=== PATIENT | female | born 1990 | race African-American/Black ===

== ENCOUNTER 2024-04-12 23:42 | Emergency (ER) | payer OTHER, MEDICAID ==
[~2024-04-12] VITALS: Ht 175.3 cm; Wt 73.0 kg
[2024-04-13] MEDS: LORAZEPAM 2MG/ML INJ IM ONE (00:08)
[2024-04-13] MEDS: HALOPERIDOL LACTATE 5MG/ML VIAL IM ONE (00:09)
[2024-04-13] MEDS: DIPHENHYDRAMINE 50MG/ML VIAL IM ONE (00:09)
[2024-04-13 00:53] LABS: BASOPHILS % 0.4 % (0.0-2.0); EOSINOPHILS % 0.5 % (0.0-5.0); HEMATOCRIT. 34.2 % (36.0-48.0); HEMOGLOBIN. 11.2 g/dL (12.0-16.0); LYMPHOCYTES % 25.2 % (20.0-50.0); MEAN CORPUSCULAR HEMOGLOBIN 31.4 pg (28.0-32.0); MEAN CORPUSCULAR HGB CONC 32.8 g/dL (31.0-37.0); MEAN CORPUSCULAR VOLUME 95.9 fL (81.0-99.0); MONOCYTES % 8.9 % (2.0-8.0); PLATELET 225 x1000/uL (130-400); RED BLOOD CELL COUNT 3.56 mill/uL (4.2-5.4); RED CELL DISTRIBUTION WIDTH 12.7 % (11.6-14.6); WHITE BLOOD COUNT 4.9 x1000/uL (4.5-11.0)
[2024-04-13 00:56] LABS: CHLORIDE 110 mEq/L (98-107); POTASSIUM 3.7 mEq/L (3.5-5.1); SODIUM 146 mEq/L (136-145)
[2024-04-13 00:57] LABS: CARBON DIOXIDE 22 mEq/L (21-32); CLARITY URINE CLEAR (CLEAR); COLOR URINE YELLOW (YELLOW); GLUCOSE URINE NEGATIVE (NEGATIVE); KETONES URINE NEGATIVE (NEGATIVE); LEUKOCYTE ESTERASE URINE TRACE (NEGATIVE); NITRITE URINE NEGATIVE (NEGATIVE); OCCULT BLOOD URINE NEGATIVE (NEGATIVE); PH URINE 6.5 (4.5-8.0); PROTEIN URINE NEGATIVE (NEGATIVE); SPECIFIC GRAVITY URINE 1.003 (1.005-1.030); UROBILINOGEN URINE 0.2 E.U./dL (0.2-1.0)
[2024-04-13 00:58] LABS: CALCIUM 9.5 mg/dL (8.7-10.4)
[2024-04-13 01:02] LABS: CREATININE 0.6 mg/dL (0.6-1.0); GLUCOSE 89 mg/dL (70-105); UREA NITROGEN BLOOD 5 mg/dL (9-23)
[2024-04-13 01:04] LABS: ACETAMINOPHEN < 2 ug/mL (10-30)
[2024-04-13 01:09] LABS: *AMPHETAMINES SCREEN URINE NEGATIVE (NEGATIVE); *BARBITURATES SCREEN URINE NEGATIVE (NEGATIVE); *BENZODIAZEPINES SCREEN URINE NEGATIVE (NEGATIVE); *COCAINE SCREEN URINE NEGATIVE (NEGATIVE); CANNABINOID URINE SCREEN NEGATIVE (NEGATIVE); ECSTASY MDMA SCREEN URINE NEGATIVE (NEGATIVE); METHADONE URINE SCREEN NEGATIVE (NEGATIVE); OPIATES URINE SCREEN NEGATIVE (NEGATIVE); PHENCYCLIDINE URINE SCREEN NEGATIVE (NEGATIVE)
[2024-04-13 01:12] LABS: ETHANOL BLOOD 310 mg/dL (<10)
[2024-04-13 01:16] LABS: HCG SCREEN NEGATIVE
[2024-04-13 02:00] VITALS: O2SAT 98
[2024-04-13 05:35] LABS: SQUAMOUS EPITHELIAL CELL URINE 1+ /lpf (RARE/1+)
[2024-04-13 05:37] LABS: RBC URINE 0-2 /hpf (0-2)
[2024-04-13 05:39] LABS: BACTERIA URINE TRACE
[2024-04-15] MEDS: ACETAMINOPHEN 325MG TABLET PO ONE (15:47)
[2024-04-15 23:00] VITALS: BP 122/54; PULSE 71; RESP 16; TEMP 36.89184; O2SAT 98
== END 2024-04-15 23:49 | disposition home or self-care (01) ==
LOC: ER 23:42
DX: R45.851 Suicidal ideations (principal); F10.129 Alcohol abuse with intoxication, unspecified; F39 Unspecified mood [affective] disorder; Z88.0 Allergy status to penicillin; Z20.822 Contact with and (suspected) exposure to COVID-19
CPT/HCPCS: 80305; 80048; 81003; 80307; 80329; 80320; 84703; 85025; 36415; 99291; 87426; 96372; J1200; J1630; J2060; G0480